=== PATIENT | female | born 1970 | race Caucasian/White ===

== ENCOUNTER → 2016-12-02 | Outpatient (REF) | payer OTHER ==
[2016-12-02 17:51] LABS: BASO # 0.1 K/mm3 (0.0-0.2); BASO % 0.7 % (0.0-1.0); EOS # 0.5 K/mm3 (0.0-0.50); EOS % 3.5 % (0.0-3.0); LARGE UNSTAINED CELL # 0.2 K/mm3 (0.0-0.4); LARGE UNSTAINED CELL % 1.2 % (0.0-4.0); LYMPH # 4.3 K/mm3 (1.5-4.5); LYMPH % 30.5 % (24.0-44.0); MEAN CORPUSCULAR HEMOGLOBIN 31.1 pg (27.0-33.0); MEAN CORPUSCULAR HGB CONC 34.8 g/dl (32.0-36.5); MEAN CORPUSCULAR VOLUME 89.3 fl (80.0-96.0); MONO # 0.6 K/mm3 (0.0-0.8); NEUTROPHILS # 8.4 K/mm3 (1.8-7.7); NEUTROPHILS % 60.2 % (36.0-66.0); PLATELET COUNT, AUTOMATED 333 k/mm3 (150-450); RED CELL DISTRIBUTION WIDTH 12.4 % (11.5-14.5); WHITE BLOOD COUNT 13.9 K/mm3 (4.0-10.0)
[2016-12-02 18:16] LABS: ANION GAP 11 MEQ/L (8-16); BLOOD UREA NITROGEN 5 MG/DL (7-18); CALCIUM LEVEL 8.9 MG/DL (8.5-10.1); CARBON DIOXIDE LEVEL 25 MEQ/L (21-32); CHLORIDE LEVEL 105 MEQ/L (98-107); GLOMERULAR FILTRATION RATE > 60.0 (>58); GLUCOSE, FASTING 106 MG/DL (70-105); POTASSIUM SERUM 4.5 MEQ/L (3.5-5.1); SODIUM LEVEL 141 MEQ/L (136-145)
[2016-12-05 14:13] LABS: Lyme Disease IgG/IgM Antibodie <0.91 ISR (0.00-0.90); Lyme Disease IgM Ab Quantitati <0.80 index (0.00-0.79)
== END ==
LOC: M SFHCLERA 12:05
PROVIDERS: ATTEND Physician Assistant
DX: R21 Rash and other nonspecific skin eruption (principal); R53.83 Other fatigue

== ENCOUNTER 2017-08-07 16:23 | Emergency (ER) | payer OTHER ==
[~2017-08-07] VITALS: Ht 170.2 cm; Wt 86.4 kg
[2017-08-07 18:33] LABS: MEAN CORPUSCULAR HEMOGLOBIN 31.5 pg (27.0-33.0); MEAN CORPUSCULAR HGB CONC 35.7 g/dl (32.0-36.5); MEAN CORPUSCULAR VOLUME 88.1 fl (80.0-96.0); PLATELET COUNT, AUTOMATED 436 10^3/uL (150-450); RED CELL DISTRIBUTION WIDTH 11.9 % (11.5-14.5); WHITE BLOOD COUNT 15.1 10^3/uL (4.0-10.0)
[2017-08-07 18:39] LABS: ADD MANUAL DIFFER YES; BLASTS POS FLAG; DIFF SLIDE NUMBER 319; POSITIVE MORPH POS FLAG
[2017-08-07 18:42] LABS: YEAST LIKE CELL URINE AUTO SMALL
[2017-08-07 18:58] LABS: ALBUMIN 3.4 GM/DL (3.2-5.2); ALBUMIN/GLOBULIN RATIO 0.67 (1.00-1.93); ALKALINE PHOSPHATASE 114 U/L (45-117); ANION GAP 11 MEQ/L (8-16); BILIRUBIN,TOTAL 0.6 MG/DL (0.2-1.0); BLOOD UREA NITROGEN 10 MG/DL (7-18); CALCIUM LEVEL 9.6 MG/DL (8.5-10.1); CARBON DIOXIDE LEVEL 23 MEQ/L (21-32); CHLORIDE LEVEL 97 MEQ/L (98-107); GLOMERULAR FILTRATION RATE > 60.0 (>58); POTASSIUM SERUM 3.9 MEQ/L (3.5-5.1); SODIUM LEVEL 131 MEQ/L (136-145); TOTAL PROTEIN 8.5 GM/DL (6.4-8.2)
[2017-08-07 19:14] LABS: GLUCOSE, FASTING 341 MG/DL (70-105)
[2017-08-07 19:27] LABS: EOSINOPHILS 1 % (0-5)
[2017-08-07 19:52] LABS: ALT/SGPT 37 U/L (12-78); AST/SGOT 18 U/L (7-37)
[2017-08-07] MEDS ORDERED: D-CA1KIT XX (20:25)
[2017-08-07] MEDS ORDERED: METF500T13 PO (20:25)
[2017-08-07] MEDS ORDERED: KEFL500C17 PO (20:25)
[2017-08-07 20:35] VITALS: BP 152/82
== END 2017-08-07 20:37 | disposition home or self-care (01) ==
LOC: M ED 16:23
DX: J01.90 Acute sinusitis, unspecified (principal); S27.818A Other injury of esophagus (thoracic part), initial encounter; X58.XXXA Exposure to other specified factors, initial encounter; Y92.89 Other specified places as the place of occurrence of the external cause; Y93.89 Activity, other specified; Y99.8 Other external cause status; B37.3 Candidiasis of vulva and vagina; E11.9 Type 2 diabetes mellitus without complications; J45.909 Unspecified asthma, uncomplicated; F17.210 Nicotine dependence, cigarettes, uncomplicated; Z88.1 Allergy status to other antibiotic agents; Z88.8 Allergy status to other drugs, medicaments and biological substances

== ENCOUNTER → 2017-08-07 | Outpatient (REF) | payer OTHER ==
[~2017-08-07] MED LIST: D-CA1KIT XX; KEFL500C17 PO; METF500T13 PO
== END ==
LOC: M SFHCLERA 14:52
PROVIDERS: ATTEND Physician Assistant
DX: L29.8 Other pruritus (principal)

== ENCOUNTER → 2017-12-10 | Outpatient (REF) | payer OTHER ==
[2017-12-10 13:39] LABS: RHEUMATOID FACTOR QUANT < 10.0 IU/ML (<15.0); TOTAL PROTEIN 6.8 GM/DL (6.4-8.2)
[2017-12-10 13:42] LABS: VITAMIN B12 LEVEL 671 PG/ML
[2017-12-10 13:43] LABS: FOLATE > 24.0 NG/ML
[2017-12-10 15:00] LABS: ERYTHROCYTE SEDIMENTATION RATE 2 mm/hr (0-20)
[2017-12-10 15:21] LABS: ESTIMATED AVERAGE GLUCOSE 120 MG/DL (60-110); HEMOGLOBIN A1c 5.8 %
[2017-12-11 11:24] LABS: ALBUMIN 4.13 GM/DL (3.29-5.55); ALBUMIN % 60.8 % (55.8-66.1); ALPHA-1-GLOBULIN % 4.2 % (2.9-4.9); ALPHA-1-GLOBULINS 0.29 GM/DL (0.17-0.41); ALPHA-2-GLOBULINS 0.67 GM/DL (0.42-0.99); ALPHA-2-GLOBULINS % 9.9 % (7.1-11.8); BETA-1-GLOBULINS % 5.9 % (4.7-7.2); BETA-2-GLOBULINS 0.31 GM/DL (0.19-0.55); BETA-2-GLOBULINS % 4.5 % (3.2-6.5); GAMMA GLOBULIN % 14.7 % (11.1-18.8)
== END ==
LOC: M LABNEURO 09:44
DX: E11.40 Type 2 diabetes mellitus with diabetic neuropathy, unspecified (principal)

== ENCOUNTER 2019-02-01 22:23 | Emergency (ER) | payer OTHER ==
[~2019-02-01] VITALS: Ht 170.2 cm; Wt 95.5 kg
[2019-02-01 23:01] LABS: HEMATOCRIT 42.7 % (36.0-47.0); HEMOGLOBIN 15.1 g/dl (12.0-15.5); MEAN CORPUSCULAR HEMOGLOBIN 31.5 pg (27.0-33.0); MEAN CORPUSCULAR HGB CONC 35.4 g/dl (32.0-36.5); PLATELET COUNT, AUTOMATED 296 10^3/uL (150-450); WHITE BLOOD COUNT 14.3 10^3/uL (4.0-10.0)
[2019-02-01 23:23] LABS: BASOPHILS 1 % (0-4); EOSINOPHILS 2 % (0-5); LYMPHOCYTES 34 % (16-52); MONOCYTES 2 % (0-8); NEUTROPHILS 61 % (35-75); PLATELET ESTIMATE NORMAL (NORMAL)
[2019-02-02 00:18] LABS: ALBUMIN 3.1 GM/DL (3.2-5.2); ALT/SGPT 83 U/L (12-78); BILIRUBIN,DIRECT < 0.1 MG/DL (0.0-0.2); BILIRUBIN,TOTAL 0.4 MG/DL (0.2-1.0); BLOOD UREA NITROGEN 12 MG/DL (7-18); CALCIUM LEVEL 7.9 MG/DL (8.5-10.1); CARBON DIOXIDE LEVEL 25 MEQ/L (21-32); CHLORIDE LEVEL 100 MEQ/L (98-107); CK-MB VALUE MASS < 1.0 NG/ML (<3.6); CPK CREATINE PHOSPHOKINASE 83 U/L (26-192); CREATININE FOR GFR 0.67 MG/DL (0.55-1.30); GLOMERULAR FILTRATION RATE > 60.0 (>58); GLUCOSE, FASTING 452 MG/DL (70-100); LIPASE 241 U/L (73-393); POTASSIUM SERUM 4.1 MEQ/L (3.5-5.1); SODIUM LEVEL 134 MEQ/L (136-145); TOTAL PROTEIN 7.1 GM/DL (6.4-8.2); TROPONIN I < 0.02 NG/ML (< 0.10)
[2019-02-02] MEDS ORDERED: NS 500 ML IV ONE (00:45)
[2019-02-02] MEDS ORDERED: HumuLIN R (REGULAR) INSULIN (NovoLIN R) **100U/ML** PER UNIT IV ONE (00:45)
[2019-02-02 00:55] LABS: ACETONE/KETONE 1.76 MG/DL (<2.81)
--- NOTE | 2019-02-02 01:04 | REP ---
Clinical: Chest pain and dizziness . Comparison: None. Technique: PA and lateral. Findings: The mediastinum and cardiac silhouette are normal. The lung xavier are clear and without acute consolidation, effusion, or pneumothorax. The skeletal structures are intact and normal. Impression: 1. No acute cardiopulmonary process. Electronically Signed by Vazquez Adams MD 02/02/2019 12:56 A
[2019-02-02 02:15] VITALS: BP 154/87
--- NOTE | 2019-02-02 07:24 | ECGEPIP ---
Stationary ECG Study [facility] - ED Test Date: 2019-02-01 Pat Name: GALO CHAKRABORTY Department: Room: - Gender: F Spouter: : [id number] Requested By: XIMENA Dumont Order Number: [id number] Reading MD: Magnolia Armendariz Measurements Intervals Alexander Rate: 70 P: 57 GA: 153 QRS: 38 QRSD: 108 T: 16 QT: 369 QTc: 399 Interpretive Statements SINUS RHYTHM POSSIBLE LEFT ATRIAL ENLARGEMENT NO PRIOR FOR COMPARISON Electronically Signed On 02-02-2019 7:24:03 EDT by Magnolia Armendariz
[2019-02-05] MEDS ORDERED: SULF1TAB93 (16:54)
[2019-02-05] MEDS ORDERED: METF10004 (16:54)
[2019-02-05] MEDS ORDERED: ASPI-226 (16:54)
[2019-02-05] MEDS ORDERED: TRAZ150T90 (16:54)
[2019-02-05] MEDS ORDERED: ESCI20TA (16:54)
[2019-02-05] MEDS ORDERED: AMIT25TA (16:54)
[2019-02-05] MEDS ORDERED: GEMF600T5 (16:54)
[2019-02-05] MEDS ORDERED: CLEO300C2 PO (20:32)
[2019-02-07] MEDS ORDERED: GLIP5TAB8 (08:53)
[2019-02-07] MEDS ORDERED: ATOR1TAB19 (08:53)
== END 2019-02-02 02:25 | disposition home or self-care (01) ==
LOC: M ED 22:23
DX: E11.65 Type 2 diabetes mellitus with hyperglycemia (principal); R11.2 Nausea with vomiting, unspecified; R30.0 Dysuria; E78.9 Disorder of lipoprotein metabolism, unspecified; G47.00 Insomnia, unspecified; F32.9 Major depressive disorder, single episode, unspecified; F41.9 Anxiety disorder, unspecified; F17.200 Nicotine dependence, unspecified, uncomplicated; Z88.8 Allergy status to other drugs, medicaments and biological substances; Z88.1 Allergy status to other antibiotic agents

== ENCOUNTER → 2022-12-17 | Outpatient (REF) ==
[~2022-12-17] MED LIST changes: +AMIT25TA17; +ASPI-226; +ATOR1TAB19; +BACTDSTA; +CLEO300C2 PO; +ESCI20TA16; +GEMF600T5; +GLIP5TAB8; +METF10004; +TRAZ150T90
== END ==
LOC: M PLAIMG 12:56
PROVIDERS: ATTEND Internal Medicine
DX: Z00.00 Encounter for general adult medical examination without abnormal findings (principal)